=== PATIENT | female | born 1980 | race Caucasian/White ===

== ENCOUNTER 2019-02-14 13:55 | Emergency (ER) | payer MEDICAID ==
[~2019-02-14] VITALS: Ht 162.6 cm; Wt 63.6 kg
[~2019-02-14 13:55] MED LIST: NO HOME MEDS
[2019-02-14 14:59] LABS: BASOPHILS % (AUTO) 1.4 % (0-1); EOSINOPHILS # (AUTO) 0.1 X10'3 (0-0.9); EOSINOPHILS % (AUTO) 1.7 % (0-6); HEMOGLOBIN 13.4 g/dl (12.0-16.0); LYMPHOCYTES # (AUTO) 0.8 X10'3 (1.1-4.8); MEAN CORPUSCULAR HEMOGLOBIN 32.4 PG (27.0-31.0); MEAN CORPUSCULAR HGB CONC 33.4 g/dL (33.0-36.5); MEAN PLATELET VOLUME 9.3 FL (7.4-10.4); MONOCYTES # (AUTO) 0.2 X10'3 (0-0.9); MONOCYTES % (AUTO) 6.4 % (2-12); NEUTROPHILS # (AUTO) 2.1 X10'3 (1.8-7.7); NEUTROPHILS % (AUTO) 65.5 % (42-75); PLATELET COUNT 217 X10'3 (140-440); RED BLOOD COUNT 4.12 X10'6 (4.20-5.60); RED CELL DISTRIBUTION WIDTH 13.3 % (11.5-14.5); WHITE BLOOD COUNT 3.2 X10'3 (4.5-11.0)
[2019-02-14 15:03] LABS: CLARITY,URINE CLOUDY (Clear); COLOR,URINE YELLOW (Yellow); GLUCOSE, URINE NEGATIVE (Neg); KETONES,URINE >=80 mg/dl (Neg); LEUKOCYTE ESTERASE ,URINE NEGATIVE (Neg); NITRITES, URINE NEGATIVE (Neg); OCCULT BLOOD,URINE TRACE-INTACT (Neg); PH,URINE 5.5 (4.8-8.0); PROTEIN,URINE 30 mg/dl (Neg); URINE HCG NEGATIVE (NEG)
[2019-02-14 15:10] LABS: URINE AMPHETAMINE SCREEN NEGATIVE (Neg); URINE BARBITUATE SCREEN NEGATIVE (Neg); URINE BENZODIAZEPINES SCREEN NEGATIVE (Neg); URINE CANNABINOID SCREEN NEGATIVE (Neg); URINE COCAINE SCREEN NEGATIVE (Neg); URINE METHADONE SCREEN NEGATIVE (Neg); URINE OPIATE SCREEN NEGATIVE (Neg); URINE PHENCYCLIDINE SCREEN NEGATIVE (Neg)
[2019-02-14] MEDS ORDERED: ESCI10TA PO (15:12)
[2019-02-14 15:14] LABS: ALANINE AMINOTRANSFERASE 43 U/L (12-78); ALBUMIN 4.2 G/DL (3.4-5.0); ALBUMIN/GLOBULIN RATIO 1.3 (1.1-1.5); ALKALINE PHOSPHATASE 29 IU/L (46-116); ANION GAP 18 (8-16); ASPARTATE AMINO TRANSFERASE 18 U/L (10-37); BILIRUBIN,TOTAL 0.6 MG/DL (0.1-1.0); BLOOD UREA NITROGEN 11 MG/DL (7-18); BUN/CREATININE RATIO 13.6 (6.6-38.0); CALCIUM 8.8 MG/DL (8.5-10.1); CHLORIDE 108 MMOL/L (99-107); CREATININE 0.81 MG/DL (0.40-0.90); GLUCOSE 56 MG/DL (70-104); POTASSIUM 3.8 MMOL/L (3.5-5.1); SODIUM 144 MMOL/L (135-145); TOTAL CARBON DIOXIDE 18.5 MMOL/L (24-32); TOTAL PROTEIN 7.4 G/DL (6.4-8.2); eGFR 80 ML/MIN
[2019-02-14 15:15] LABS: ETHANOL < 0.010 GM/DL (0.0-0.010)
[2019-02-14 15:19] LABS: MUCUS STRANDS FEW /LPF (Neg); SQUAMOUS EPITHELIAL CELL,UR MANY /LPF (FEW); UA COLLECTION TYPE CLN CATCH MIDSTREAM
[2019-02-14 15:20] LABS: BACTERIA,URINE 2+ /HPF (Neg); HYALINE CASTS 0-3 /LPF (NEGATIVE); RBC,URINE 0-2 /HPF (0-2)
[2019-02-14] MEDS ORDERED: ESCI5TAB PO (19:01)
--- NOTE | 2019-02-14 19:07 | NUR ---
Tang from [facility] speaking with patient. No distress observed. Continue to monitor.
--- NOTE | 2019-02-14 20:56 | NUR ---
Kris, Father, . Patient signed a release. Please call and give them an update.
--- NOTE | 2019-02-14 21:30 | NUR ---
RN was looking at patient's labs and noticed the patient's blood glucose was 57 at 1450. RN took her blood glucose again and it was 58. RN spoke to Dr Lakhani who did not want to order patient an IV but wants patient to eat and drink. Patient has refused but RN advised patient that she was not going to get and IV and that she needs to drink. Patient kept saying "No, I would rather have an I.V. I can't eat or drink because I don't feel well." RN explained to patient that the reason she wasn't feeling well is because she is dehydrated and needs to eat and drink. Patient states she would rather have an IV. Patient states she doesn't want to eat or drink. RN advised patient that she has to drink juice and eventually patient drank an entire juice and rolled over and went to sleep. Continue to monitor.
--- NOTE | 2019-02-14 23:10 | NUR ---
Patient sleeping on right side with hands covering her ears. There is not a lot of noise in this area. Continue to monitor.
--- NOTE | 2019-02-15 01:08 | NUR ---
Patient continues to cover ears with hands and sleepingon right side. No distress observed. Continue to monitor.
--- NOTE | 2019-02-15 02:34 | NUR ---
Patient curled up in a ball laying on right side. RN placed blankets over patient. Patient aroused but went back to sleep. Continue to monitor.
--- NOTE | 2019-02-15 04:23 | NUR ---
Patient sleeping supine. No restlessness observed. Continue to monitor.
[2019-02-15] MEDS: citalopram 20mg tablet PO SCH (08:26)
--- NOTE | 2019-02-15 09:18 | NUR ---
SPOKE TO [facility]
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
--- NOTE | 2019-02-15 09:46 | NUR ---
SPOKE WITH HS TO DETERMINE IF FAMILY COULD BRING PATIENTS DOG (NOT A SERVICE DOG) FOR A VISIT -DENIED PER HOSPITAL POLICY, FAMILY UNDERSTANDING.
--- NOTE | 2019-02-15 11:54 | NUR ---
FAMILY MEMBERS X 3 AT BEDSIDE
--- NOTE | 2019-02-15 14:05 | NUR ---
pt noted to randomly "call out" and "sad" facial expressions noted.
--- NOTE | 2019-02-15 15:17 | NUR ---
pt blood sugar 66, drank a carton of apple juice. offered lip balm and to perform hygine, refused, hygine basin at side.
--- NOTE | 2019-02-15 15:30 | NUR ---
spoke to father elia, states have been calling around looking for treatment facilities specific to eating disorders, gave reference and phone number [phone] [facility]
--- NOTE | 2019-02-15 16:20 | NUR ---
Spoke with Izaiah at [facility] office and inquired if pt packet sent out. Report packet was sent to [facility] and packet to [facility] to be sent now as we have not had response regarding possible bed.
--- NOTE | 2019-02-15 16:27 | NUR ---
Spoke with Barbara from [facility] and requested psychiatric consult.
[2019-02-15] MEDS ORDERED: glucagon, human recombinant 1mg kit SUBCUT PRN (16:50)
[2019-02-15] MEDS ORDERED: dextrose ORAL solution 15 GM/59 ML bottle PO PRN (16:50)
--- NOTE | 2019-02-15 16:51 | NUR ---
Reviewed pt glucose trends with MD Lakhani. Pt to be placed on oral hypoglycemia protocol with Glucagon IM coverage if pt unable to intake orally.
[2019-02-15] MEDS ORDERED: dextrose 50%-water 50ml dispensing syringe IV PRN (17:00)
--- NOTE | 2019-02-15 17:45 | NUR ---
NOTED TO BE SPEAKING TO HERSELF WHILE LOOK TO THE WALL THEN RUBBING EYES WITH SAD EXPRESSION
--- NOTE | 2019-02-15 17:54 | NUR ---
SPOKE TO MILAGRO AT [facility] WILL ATTEMPT TO GET AN ESTIMATE TIME FOR CONSULT WITH DR. Woody AND GET BACK TO US
--- NOTE | 2019-02-15 18:24 | NUR ---
dR. Woody PRESENT, REVIEWING CHART AND WILL VISIT PATIENT
[2019-02-16] MEDS: dextrose ORAL solution 15 GM/59 ML bottle PO PRN ×4 (05:05→21:21)
[2019-02-16] MEDS: citalopram 20mg tablet PO SCH (07:51)
--- NOTE | 2019-02-16 08:07 | NUR ---
Elsy from [facility] called to inquire about pt. States they may have a bed available later today.
--- NOTE | 2019-02-16 08:14 | NUR ---
Pt. declined breakfast. BG this am 147.
--- NOTE | 2019-02-16 09:52 | NUR ---
Patient's parents at bedside.
--- NOTE | 2019-02-16 10:18 | NUR ---
Parents left a short time ago. Pt. lying on right side with eyes closed.
--- NOTE | 2019-02-16 13:13 | NUR ---
BG prior to lunch was 61. Dex4 x one bottle was admininsterd per protocol. BG came up to 78. Pt. refusing lunch tray. Encouraged to eat to keep blood glucose WNL.
--- NOTE | 2019-02-16 14:41 | NUR ---
Pt. sitting up in bed, quietly.
--- NOTE | 2019-02-16 15:21 | NUR ---
Visitors x 2 at bedside.
--- NOTE | 2019-02-16 16:12 | NUR ---
Pt. sitting up in bed, looking towards the wall.
--- NOTE | 2019-02-16 17:12 | NUR ---
parents have clothing for their daughter, would like to be called when their daughter is going to be transfered.
--- NOTE | 2019-02-16 18:00 | NUR ---
Pt. lying in bed without signs of distress.
--- NOTE | 2019-02-16 21:25 | NUR ---
PATIENT'S BLOOD SUGAR UNDER 70, PATIENT OFFERED MANY TYPES OF FOOD; PATIENT REFUSED. "I'LL JUST TAKE THE GLUCOSE SHOT" EDUCATED PATIENT ON THE IMPORTANCE OF EATING AND HOW PROTEIN AND FAT HELP MAINTAIN AN EVEN BLOOD SUGAR. PATIENT CONTINUES TO REFUSE TO EAT. SPOKE TO DR KHANNA ABOUT PATIENT NOT EATING OR DRINKING SINCE ADMISSION PER PRIMARY RN VITO. AND I DISCUSSED THAT THE PATIENT'S BMI IS 24.1 AND THE PROTEIN IN HER ADMISSION BLOODWORK IS WNL. NO ORDERS RECEIVED. BEFORE VITO WENT ON HER BREAK, SHE PROVIDED THE PATIENT YOGURT AND APPLESAUCE
--- NOTE | 2019-02-16 22:03 | NUR ---
pt glucose came up from 69 to 130 after admin. of dex drink per hypoglycemic protocol. offered every type of food we have and brought some to the bedside, pt is still refusing to eat. she keeps saying "i'm not hungry".. pt is thankful for everything and pleasant. she is sitting up in bed with a sad look on her face but insists she does not need anything. i educated her on the signs and symptoms of low blood sugar and she agrees to inform me if she feels as such, also explained the complications that can arise from low blood sugar with the possibility of coma. will continue to monitor the pt
--- NOTE | 2019-02-16 23:08 | NUR ---
pt is still sitting up in bed, says she's not tired. offered to help pt reposition bed, asked if she would want a medication for sleep, pt refuses
--- NOTE | 2019-02-17 00:51 | NUR ---
pt has been sleeping on rt side. resp even/unlabored
--- NOTE | 2019-02-17 02:11 | NUR ---
pt is sleeping. resp even/unlabored
--- NOTE | 2019-02-17 04:34 | NUR ---
pt sleeping. pulled the blanket over her head. resp even/unlabored
--- NOTE | 2019-02-17 06:30 | NUR ---
Awake at change of shift. Sitting cross-legged on her bed, twitching her head. Approached by staff. Patient presents as frightenend and unwilling to particiapte in conversation.
[2019-02-17] MEDS: citalopram 20mg tablet PO SCH (07:28)
[2019-02-17] MEDS: LORazepam 0.5 MG tablet PO PRN ×2 (07:28→13:11)
--- NOTE | 2019-02-17 07:30 | NUR ---
Patient exhibiting increasing anxiety. Slapping herself on the forehead saying "Fu--, Fu--,Fu--." Unusual head movements noted, as if her head was a robot. Patient offered and accepted Ativan 1 mg. PO PRN.
--- NOTE | 2019-02-17 08:30 | NUR ---
Served breakfast tray. Refused to eat on her own. Allowed staff staff to feed her two spoonfuls of oatmeal. Will not drink any fluids.
--- NOTE | 2019-02-17 09:26 | NUR ---
GIVING NURSE A BREAK. PT. RESTING COMFORTABLY IN BED, APPEARS TO BE IN NO DISTRESS. WILL CONTINUE TO MONITOR.
--- NOTE | 2019-02-17 09:30 | NUR ---
Patient parents at bedside, visiting. Parents present as concerned about daughter and a positive support system. Patient lives with parents. Part of her suicidal ideation revoloves around "being a burden to my parents and using their electricity."
--- NOTE | 2019-02-17 11:30 | NUR ---
Sleeping in her bed at this time. Wrapped up in blankets. Color and breathing WNL. In line of sight of staff at all times.
--- NOTE | 2019-02-17 12:50 | NUR ---
Served lunch. Would not feed herself. Allowed staff to feed her seven teaspoons of turkey and rice. Refusing all offer of fluids. Looks at her water in alarm. Believes "milk is bad for your system." Will not drink juice.
[2019-02-17] MEDS ORDERED: OLANZapine 2.5MG tablet PO ONE (12:55)
--- NOTE | 2019-02-17 13:11 | NUR ---
Accepted offer of Ativan 1 mg. and Zyprexa 5 mg. PO to decrease severe social anxiety and increase comfort and ability to rest.
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
[2019-02-17] MEDS: dextrose 5%-normal saline 1,000 ML IV SCH ×2 (16:49→19:03)
--- NOTE | 2019-02-17 16:49 | NUR ---
Charge Nurse Susan asked to review patient's lab work, especially urine results. Call received from Charge Nurse Susan stating lab results had been shown to Dr. Carmen. Patient was diagnosed as going into ketosis. IV orders given. Nurse Jeffries started IV without resistence by patient.
--- NOTE | 2019-02-17 18:11 | NUR ---
Mother remains at bedside. IV fluid infusing as ordered. Resting at this time.
--- NOTE | 2019-02-17 18:58 | NUR ---
pt glucose is 333 after one bag of dextrose 5% in NS. reported to Kermit JIMÉNEZ. he wants to complete 2nd bag of aforementioned fluids. he is trying to bring the pt out of ketosis. I asked if he wanted maintenance fluids after bolus in light of the pt minimal intake. he says no, to reeavluate in the AM and recheck glucose in the AM
--- NOTE | 2019-02-17 19:39 | NUR ---
pt is sleeping, much calmer but seems fatigued compared to yesterday where she was sitting up in bed looking anxious. parents left a short time ago, they are pleasant and involved with pt. IVF bolus infusing. pt has not touched dinner
[2019-02-17] MEDS: OLANZapine 2.5MG tablet PO SCH (20:00)
--- NOTE | 2019-02-17 20:38 | NUR ---
pt has been sleeping since I got here, holding off on zyprexa administration
--- NOTE | 2019-02-17 20:57 | NUR ---
pt IV bolus complete, disconnected and removed IV pole from pt room area. asked pt if she wants to take zyprexa, she does not want to. she is sleepy
--- NOTE | 2019-02-17 23:24 | NUR ---
pt sleeping on back, shifting periodically. she has her blanket over her head. resp even/unlabored
--- NOTE | 2019-02-18 02:24 | NUR ---
pt continues resting. resp even/unlabored. laying on lt side
--- NOTE | 2019-02-18 05:23 | NUR ---
pt continues sleeping, has shifted in bed periodically
--- NOTE | 2019-02-18 06:45 | NUR ---
Patient sleeping in bed
[2019-02-18] MEDS: citalopram 20mg tablet PO SCH (07:28)
[2019-02-18] MEDS: OLANZapine 2.5MG tablet PO SCH ×2 (07:28→19:46)
[2019-02-18] MEDS: dextrose 50%-water 50ml dispensing syringe IV PRN ×3 (07:42→18:42)
--- NOTE | 2019-02-18 07:45 | NUR ---
Patients blood glucose 67, patient refuses to drink oral glucose. dextrose 25 ML IV push given.
--- NOTE | 2019-02-18 08:12 | NUR ---
retook blood sugar 129. patient is refusing to eat breakfast. Sitting in bed anxious.
--- NOTE | 2019-02-18 09:30 | NUR ---
Patients family members at bedside
--- NOTE | 2019-02-18 11:22 | NUR ---
Patient is sitting in bed. Just staring straight ahead. Flat affect.
--- NOTE | 2019-02-18 12:08 | NUR ---
patient sleeping; in no distress
--- NOTE | 2019-02-18 13:50 | NUR ---
Break nurse gave patient dextrose blood glucose 57 rechecked after 15 min blood glucose now 124
--- NOTE | 2019-02-18 14:03 | NUR ---
Patient still resting. spoke with patients mother. she is very worried about her and not eating. patient refused to talk to her over the phone.
--- NOTE | 2019-02-18 15:00 | NUR ---
spoke with bryson from [facility], planning to admit patient at 9pm cat
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
--- NOTE | 2019-02-18 16:12 | NUR ---
Patient resting; blanket covering her ears. in no distress
--- NOTE | 2019-02-18 17:15 | NUR ---
visitors at bedside
[2019-02-18 17:39] VITALS: BP 124/79
--- NOTE | 2019-02-18 17:49 | NUR ---
patient sitting on the edge of bed. in no distress
--- NOTE | 2019-02-18 18:30 | NUR ---
RECEIVED REPORT FROM RIKA BOWDEN PATIENT IN BED AWAKE.
--- NOTE | 2019-02-18 18:45 | NUR ---
PATIENT REFUSED TO EAT DINNER ACCU CHECKED 56 REFUSED ANYTHING BY MOUTH, DEXTROSE 50% 25 ML GIVEN IV.
--- NOTE | 2019-02-18 19:20 | NUR ---
ACCU CHECKED 125
--- NOTE | 2019-02-18 20:10 | NUR ---
PATIENT LEFT TO [facility].
== END 2019-02-18 20:10 ==
LOC: ER 13:55
DX: R63.0 Anorexia (principal); F41.9 Anxiety disorder, unspecified; F31.9 Bipolar disorder, unspecified; R45.851 Suicidal ideations; Z79.899 Other long term (current) drug therapy; Z68.24 Body mass index [BMI] 24.0-24.9, adult
CPT/HCPCS: 36415; 80053; 80305; 80320; 81001; 81025; 82948; 85025; 96374; 96376; 99285

== ENCOUNTER 2022-05-03 17:06 | Emergency (ER) | payer MEDICAID ==
[~2022-05-03] VITALS: Ht 165.1 cm; Wt 85.0 kg
[~2022-05-03 17:06] MED LIST changes: +ESCI5TAB PO; -NO HOME MEDS
[2022-05-03] MEDS ORDERED: haloperidol lactate 5mg/ml inj IM ONE (17:15)
--- NOTE | 2022-05-03 17:50 | NUR ---
Pt brought to the unit from Triage by RNEloisa and medical officer psychiatry. A 5150 was written by DOMENICO Heck from [facility]. She is currently in bed #24 crying.
[2022-05-03 17:52] LABS: BASOPHILS % (AUTO) 0.8 % (0-1); EOSINOPHILS # (AUTO) 0.1 X10'3 (0-0.9); EOSINOPHILS % (AUTO) 0.8 % (0-6); HEMATOCRIT 45.3 % (35.0-45.0); HEMOGLOBIN 15.3 g/dl (12.0-16.0); LYMPHOCYTES # (AUTO) 2.1 X10'3 (1.1-4.8); MEAN CORPUSCULAR HEMOGLOBIN 31.5 PG (27.0-31.0); MEAN CORPUSCULAR HGB CONC 33.7 g/dL (33.0-36.5); MEAN CORPUSCULAR VOLUME 93.7 FL (78-98); MEAN PLATELET VOLUME 9.2 FL (7.4-10.4); MONOCYTES # (AUTO) 0.4 X10'3 (0-0.9); MONOCYTES % (AUTO) 6.7 % (2-12); NEUTROPHILS # (AUTO) 3.6 X10'3 (1.8-7.7); NEUTROPHILS % (AUTO) 57.7 % (42-75); PLATELET COUNT 301 X10'3 (140-440); RED BLOOD COUNT 4.84 X10'6 (4.20-5.60); RED CELL DISTRIBUTION WIDTH 13.1 % (11.5-14.5); WHITE BLOOD COUNT 6.3 X10'3 (4.5-11.0)
[2022-05-03 18:07] LABS: ALANINE AMINOTRANSFERASE 16 U/L (12-78); ALBUMIN 4.4 G/DL (3.4-5.0); ALBUMIN/GLOBULIN RATIO 1.3 (1.1-1.5); ALKALINE PHOSPHATASE 43 IU/L (46-116); ANION GAP 21 (8-16); ASPARTATE AMINO TRANSFERASE 16 U/L (10-37); BILIRUBIN,TOTAL 0.8 MG/DL (0.1-1.0); BLOOD UREA NITROGEN 7 MG/DL (7-18); BUN/CREATININE RATIO 7.1 (6.6-38.0); CALCIUM 9.6 MG/DL (8.5-10.1); CHLORIDE 102 MMOL/L (99-107); CREATININE 0.99 MG/DL (0.40-0.90); GLUCOSE 137 MG/DL (70-104); POTASSIUM 3.5 MMOL/L (3.5-5.1); SODIUM 138 MMOL/L (135-145); TOTAL CARBON DIOXIDE 15.4 MMOL/L (24-32); TOTAL PROTEIN 7.9 G/DL (6.4-8.2); eGFR 62 ML/MIN
[2022-05-03] MEDS ORDERED: diphenhydrAMINE 50 mg/ml inj IM ONE (18:10)
[2022-05-03 18:13] LABS: ETHANOL < 0.010 GM/DL (0.0-0.010)
--- NOTE | 2022-05-03 18:30 | NUR ---
The patient is a 42 year old female brought in by the SO from [facility] on a 5150 for grave disability. The patient was taken to [facility] for mental health appointment. The patient lives with her parents and has a diagnosis of schizoaffective Disorder, Depressive type. She reportedly is eating only a few bites per day of food. She has not had a bowel movement for a prolonged period. She has been very distressed and yelling for hours to the point the neighbors called the police out of concern. She has a history of previous suicide attempts. She is responding to internal stimuli per [facility] and has a voice called, Jeremi Hickman and it controls her po intake.
--- NOTE | 2022-05-03 18:35 | NUR ---
PARENTS OSEAS CRAWFORD [phone]
[2022-05-03] MEDS ORDERED: SERT-153 PO (18:40)
[2022-05-03] MEDS ORDERED: CARI3CAP PO (18:40)
[2022-05-03] MEDS ORDERED: LORA-269 PO (18:40)
[2022-05-03] MEDS ORDERED: LORazepam 1 MG tablet PO PRN (19:00)
[2022-05-03] MEDS ORDERED: sertraline 50mg tablet PO SCH (21:00)
--- NOTE | 2022-05-03 21:36 | NUR ---
The patient is sleeping soundly at this time. HS medications held 2nd to sedation.
--- NOTE | 2022-05-03 23:36 | NUR ---
The patient appears to be sleeping
--- NOTE | 2022-05-04 01:59 | NUR ---
The patient appears to be sleeping well
--- NOTE | 2022-05-04 03:00 | NUR ---
The patient appears to be sleeping
--- NOTE | 2022-05-04 05:01 | NUR ---
The patient appeared to have slept well throughout the night.
[2022-05-04 06:03] VITALS: BP 104/73
[2022-05-04 06:37] LABS: URINE HCG NEGATIVE (NEG)
[2022-05-04 06:46] LABS: CLARITY,URINE CLOUDY (Clear); COLOR,URINE YELLOW (Yellow); GLUCOSE, URINE NEGATIVE (Neg); KETONES,URINE >=80 mg/dl (Neg); LEUKOCYTE ESTERASE ,URINE NEGATIVE (Neg); NITRITES, URINE NEGATIVE (Neg); OCCULT BLOOD,URINE NEGATIVE (Neg); PH,URINE 5.5 (4.8-8.0); PROTEIN,URINE TRACE mg/dl (Neg); UROBILINOGEN,URINE 0.2 E.U/dL (0.2-1.0)
[2022-05-04 06:51] LABS: URINE AMPHETAMINE SCREEN NEGATIVE (Neg); URINE BARBITUATE SCREEN NEGATIVE (Neg); URINE BENZODIAZEPINES SCREEN NEGATIVE (Neg); URINE CANNABINOID SCREEN NEGATIVE (Neg); URINE COCAINE SCREEN NEGATIVE (Neg); URINE METHADONE SCREEN NEGATIVE (Neg); URINE OPIATE SCREEN NEGATIVE (Neg); URINE PHENCYCLIDINE SCREEN NEGATIVE (Neg)
[2022-05-04 06:54] LABS: UA COLLECTION TYPE VOIDED
[2022-05-04 06:56] LABS: BACTERIA,URINE 1+ /HPF (Neg); RBC,URINE 0-2 /HPF (0-2); SQUAMOUS EPITHELIAL CELL,UR MODERATE /LPF (FEW); WBC,URINE 0-4 /HPF (0-4)
--- NOTE | 2022-05-04 07:00 | NUR ---
Received Pt in bed sleeping w/o distress at this time.
[2022-05-04] MEDS ORDERED: OLANZapine 5mg rapidly disint. tablet PO SCH (08:00)
[2022-05-04] MEDS ORDERED: CARIPRAZINE 1.5 MG CAPSULE PO SCH (08:00)
--- NOTE | 2022-05-04 10:30 | NUR ---
pT WIKE AND TOOK am MEDS. pT ATE APPROX. 15% OF BREAKFAST. Pt became tearful and remained in bed. Pt used phone and spoke with mother.
--- NOTE | 2022-05-04 11:30 | NUR ---
Pt has calmed and awake in bed. Pt polite with this RN. Pulse retaken manually and was 84. Pt has bowel sounds in all four quadrants. Nurse to nurse completed with Flavio Eng.
--- NOTE | 2022-05-04 11:43 | NUR ---
[facility] called at approx. 1215 [facility] Pt was picked up by [facility] recycle driver at 1240. Pt belongings and original 5150 given to [facility] recycle driver.
== END 2022-05-04 11:48 ==
LOC: ER 17:07
DX: F79 Unspecified intellectual disabilities (principal); Z20.822 Contact with and (suspected) exposure to COVID-19; F41.9 Anxiety disorder, unspecified; F31.9 Bipolar disorder, unspecified; F20.9 Schizophrenia, unspecified; Z79.899 Other long term (current) drug therapy
CPT/HCPCS: 36415; 80053; 80305; 80320; 81001; 81025; 84443; 85025; 87811; 96372; 99285; J1200; J1630

== ENCOUNTER 2022-05-23 15:38 | Emergency (ER) | payer MEDICAID ==
[~2022-05-23] VITALS: Ht 165.1 cm; Wt 80.9 kg
[~2022-05-23 15:38] MED LIST changes: +CARI3CAP PO; -ESCI5TAB PO; +LORA-269 PO; +SERT-153 PO
[2022-05-23 16:12] LABS: BASOPHILS % (AUTO) 0.9 % (0-1); EOSINOPHILS # (AUTO) 0.1 X10'3 (0-0.9); EOSINOPHILS % (AUTO) 1.8 % (0-6); HEMATOCRIT 41.3 % (35.0-45.0); HEMOGLOBIN 14.1 g/dl (12.0-16.0); LYMPHOCYTES # (AUTO) 0.9 X10'3 (1.1-4.8); LYMPHOCYTES % (AUTO) 22.2 % (21-51); MEAN CORPUSCULAR HEMOGLOBIN 32.3 PG (27.0-31.0); MEAN CORPUSCULAR HGB CONC 34.2 g/dL (33.0-36.5); MEAN CORPUSCULAR VOLUME 94.3 FL (78-98); MEAN PLATELET VOLUME 8.3 FL (7.4-10.4); MONOCYTES # (AUTO) 0.3 X10'3 (0-0.9); MONOCYTES % (AUTO) 6.9 % (2-12); NEUTROPHILS # (AUTO) 2.8 X10'3 (1.8-7.7); NEUTROPHILS % (AUTO) 68.2 % (42-75); PLATELET COUNT 268 X10'3 (140-440); RED BLOOD COUNT 4.38 X10'6 (4.20-5.60); WHITE BLOOD COUNT 4.2 X10'3 (4.5-11.0)
[2022-05-23 16:28] LABS: ALANINE AMINOTRANSFERASE 252 U/L (12-78); ALBUMIN 3.9 G/DL (3.4-5.0); ALBUMIN/GLOBULIN RATIO 1.1 (1.1-1.5); ALKALINE PHOSPHATASE 57 IU/L (46-116); ANION GAP 7 (8-16); ASPARTATE AMINO TRANSFERASE 101 U/L (10-37); BILIRUBIN,TOTAL 0.5 MG/DL (0.1-1.0); BLOOD UREA NITROGEN 11 MG/DL (7-18); BUN/CREATININE RATIO 16.4 (6.6-38.0); CALCIUM 9.2 MG/DL (8.5-10.1); CHLORIDE 105 MMOL/L (99-107); CREATININE 0.67 MG/DL (0.40-0.90); GLUCOSE 106 MG/DL (70-104); POTASSIUM 3.8 MMOL/L (3.5-5.1); SODIUM 139 MMOL/L (135-145); TOTAL CARBON DIOXIDE 27.4 MMOL/L (24-32); TOTAL PROTEIN 7.4 G/DL (6.4-8.2); eGFR > 90 ML/MIN
[2022-05-23 17:18] VITALS: BP 112/67
== END 2022-05-23 17:00 | disposition home or self-care (01) ==
LOC: ER 15:39
DX: R74.01 Elevation of levels of liver transaminase levels (principal); F31.9 Bipolar disorder, unspecified
CPT/HCPCS: 36415; 74018; 80053; 85025; 99284